=== PATIENT | male | born 1970 ===

== ENCOUNTER 2018-07-10 08:28 | Emergency (ER) | payer BC ==
[2018-07-10] MEDS ORDERED: Sodium Chloride 0.9% 1,000 ML IV ONE (09:46)
--- NOTE | 2018-07-10 09:48 | C.PDOC ---
History Of Present Illness 48 y/o male presents to ED with c/o sharp abdominal pain, nausea and diarrhea for 4 days. Patient states abdominal pain is generalized but worse on lower abdomen and reports 5-6 episodes of non bloody diarrhea daily. Patient states s he had x1 episode of non blood vomiting yesterday and denies recent antibiotic use. Patient admits to decreased po intake secondary to nausea and denies fever, chills, chest pain, sob, dizziness, headache, back pain or any other complaints at this time. Time Seen by Provider: 07/10/18 09:12 Chief Complaint (Nursing): Abdominal Pain History Per: Patient History/Exam Limitations: no limitations Onset/Duration Of Symptoms: Days Current Symptoms Are (Timing): Still Present Location Of Pain/Discomfort: Diffuse Past Medical History Reviewed: Historical Data, Nursing Documentation, Vital Signs Vital Signs: Last Vital Signs Temp 100.2 F H 07/10/18 08:35 Pulse 88 07/10/18 08:35 Resp 17 07/10/18 08:35 BP 128/77 07/10/18 08:35 Pulse Ox 96 07/10/18 08:35 - Medical History PMH: No Chronic Diseases Surgical History: Appendectomy Family History: States: No Known Family Hx - Social History Hx Alcohol Use: No Hx Substance Use: No - Immunization History Hx Tetanus Toxoid Vaccination: No Hx Influenza Vaccination: No Hx Pneumococcal Vaccination: No Review Of Systems Constitutional: Negative for: Fever, Chills Gastrointestinal: Positive for: Nausea, Vomiting, Abdominal Pain, Diarrhea. Negative for: Hematochezia, Hematemesis Genitourinary: Negative for: Dysuria Musculoskeletal: Negative for: Back Pain Skin: Negative for: Rash Physical Exam - Physical Exam Appears: Non-toxic, No Acute Distress Skin: Normal Color, Warm, Dry, No Rash Head: Atraumatic, Normacephalic Eye(s): bilateral: Normal Inspection, PERRL, EOMI Ear(s): Bilateral: Normal Nose: Normal Oral Mucosa: Moist Throat: Normal, No Erythema, No Exudate Neck: Normal ROM, Supple Cardiovascular: Rhythm Regular Respiratory: Normal Breath Sounds, No Rales, No Rhonchi, No Wheezing Gastrointestinal/Abdominal: Bowel Sounds (normoactive), Soft, Tenderness (Generalized worse on LLQ and Suprapubic), No Distention, No Guarding, No Rebound Back: Normal Inspection, No CVA Tenderness, No Vertebral Tenderness, No Paraspinal Tenderness Extremity: Normal ROM, No Pedal Edema, Capillary Refill (<2 seconds) Extremity: Bilateral: Atraumatic, Normal Color And Temperature, Normal ROM, Painful To Bear Weight Pulses: Left Radial: Normal, Right Radial: Normal, Left Dorsalis Pedis: Normal, Right Dorsalis Pedis: Normal Neurological/Psych: Oriented x3, Normal Speech, Normal Cognition, Normal Motor, Normal Sensation Gait: Steady ED Course And Treatment - Laboratory Results Result Diagrams: 07/10/18 09:58 07/10/18 09:58 O2 Sat by Pulse Oximetry: 96 (RA) Pulse Ox Interpretation: Normal - Radiology CXR: Viewed By Me, Read By Radiologist CXR Interpretation: Yes: No Acute Disease - Other Rad CXR X-Ray: Viewed By Me, Read By Radiologist Interpretation: IMPRESSION: Hypoinflation. No focal consolidation identified. - CT Scan/US CT abd/pelvis Other Rad Studies (CT/US): Read By Radiologist, Radiology Report Reviewed CT/US Interpretation: IMPRESSION: Diverticulosis without CT evidence of acute diverticulitis. Evidence of appendectomy. No secondary signs of acute appendicitis. Additional findings as above. Medical Decision Making Medical Decision Making: Plan: * CBC, CMP * Lipase * UA * Urine culture * CXR * CT Abd/Pelvis with IV contrast * Zofran * Pepcid * IVF Labs reveal no leukocytosis. Mild hypokalemia, will give 20mEq KCl. Patient reports decreased pain after medications. CXR: no active disease CT: diverticulosis, no other acute pathology Diagnostic testing results and plan of care discussed with patient, and strict instructions given regarding antibiotic prescriptions, importance of follow up, and signs to return to Emergency Department, to include worsening pain, chest pain, abdominal pain, or any other new/worsening symptoms. Patient verbalizes understanding of discussion. Patient A&Ox3, ambulating with steady gait, stable for discharge home. Disposition - Disposition Referrals: Charly Anderson [Staff Provider] - Disposition: HOME/ ROUTINE Disposition Time: 12:40 Condition: IMPROVED Additional Instructions: Lyle Ciprofloxacin cada 2 horas mila 10 pelaez. Lyle flagyl cada 12 horas mila 10 pelaez, no vi alcohol con joann medicamento Incrementa los lquidos para mantenerte hidratado. Seguimiento con mdico primario en 2 pelaez. Seguimiento con GI dentro de 2 pelaez Regrese a la jose de emergencias para cualquier sntoma nuevo / que empeora Prescriptions: Ciprofloxacin [Cipro] 500 mg PO Q12H #19 tab Metronidazole [Flagyl] 500 mg PO Q8H #29 tablet Instructions: Diarrhea in Adolescents and Adults, Diverticulosis Forms: Work Excuse, Gen Discharge Inst Persian, [employer] (Persian) Print Language: [place] - Clinical Impression Clinical Impression: Diarrhea, Abdominal pain - PA / PEDIATRIC PHYSICIAN / Resident Statement MD/DO has reviewed & agrees with the documentation as recorded. - Scribe Statement The provider has reviewed the documentation as recorded by the Zackery Abdul All medical record entries made by the Travisibangella were at my direction and personally dictated by me. I have reviewed the chart and agree that the record accurately reflects my personal performance of the history, physical exam, medical decision making, and the department course for this patient. I have also personally directed, reviewed, and agree with the discharge instructions and disposition.
[2018-07-10 10:07] LABS: BASO % 0.3 % (0.0-2.0); HEMOGLOBIN 16.2 g/dL (12.0-18.0); LYMPH # 1.1 K/uL (1.0-4.3); LYMPH % 19.4 % (20.0-40.0); MEAN CELL VOLUME 87.8 fL (80.0-94.0); MEAN CORPUSCULAR HEMOGLOBIN 29.4 pg (27.0-31.0); MEAN CORPUSCULAR HGB CONC 33.4 g/dL (33.0-37.0); MEAN PLATELET VOLUME 8.9 fL (7.2-11.7); MONO # 0.7 K/uL (0.0-0.8); MONO % 12.4 % (0.0-10.0); NEUT # 3.9 K/uL (1.8-7.0); NEUT % 67.9 % (50.0-75.0); NRBC % 0.1 % (0.0-2.0); RBC 5.52 Mil/uL (4.40-5.90); RED CELL DISTRIBUTION WIDTH 13.4 % (11.5-14.5); WHITE BLOOD COUNT 5.8 K/uL (4.8-10.8)
[2018-07-10 10:12] LABS: SQUAMOUS EPITHIAL < 1 /hpf (0-5); URINE BILIRUBIN NEGATIVE (NEGATIVE); URINE BLOOD 1+ (NEGATIVE); URINE CLARITY Clear (Clear); URINE COLOR Yellow (YELLOW); URINE GLUCOSE (UA) NORMAL (Normal); URINE LEUKOCYTE ESTERASE NEG Leu/uL (Negative); URINE PROTEIN 1+ mg/dL (NEGATIVE); URINE UROBILINOGEN NORMAL mg/dL (0.2-1.0)
[2018-07-10 10:18] LABS: ALB/GLOB RATIO 1.3 (1.0-2.1); ALBUMIN 4.5 g/dL (3.5-5.0); ALT/SGPT 36 U/L (21-72); AST/SGOT 26 U/L (17-59); BLOOD UREA NITROGEN 14 mg/dL (9-20); CALCIUM 8.9 mg/dl (8.6-10.4); GFR NON-AFRICAN AMERICAN > 60; LIPASE 102 U/L (23-300)
[2018-07-10] MEDS ORDERED: Potassium Chloride 20 mEq ER Tab PO STA (10:26)
[2018-07-10] MEDS ORDERED: Potassium Chloride 20 mEq ER Tab PO ONE (10:54)
[2018-07-10] MEDS ORDERED: Iodixanol 320 MG/ML 100 ML BOTTLE IV ONE (11:00)
--- NOTE | 2018-07-10 11:04 | RAD ---
HISTORY: abdominal pain COMPARISON: No prior. TECHNIQUE: Chest, one view. FINDINGS: Examination limited by habitus and hypoinflation. LUNGS: No focal consolidation. Please note that chest x-ray has limited sensitivity for the detection of pulmonary masses. PLEURA: No significant pleural effusion identified. No definite pneumothorax . CARDIOVASCULAR: Heart size appears within normal limits. No significant atherosclerotic calcification present. OSSEOUS STRUCTURES: No acute osseous abnormality identified. VISUALIZED UPPER ABDOMEN: Unremarkable. OTHER FINDINGS: None. IMPRESSION: Hypoinflation. No focal consolidation identified.
--- NOTE | 2018-07-10 11:42 | CT ---
Date of service: 07/10/2018 PROCEDURE: CT Abdomen and Pelvis with contrast HISTORY: abd pain COMPARISON: None available. TECHNIQUE: Contrast dose: 100 mL Visipaque 320 Radiation dose: Total exam DLP = 677.87 mGy-cm. This CT exam was performed using one or more of the following dose reduction techniques: Automated exposure control, adjustment of the mA and/or kV according to patient size, and/or use of iterative reconstruction technique. FINDINGS: LOWER THORAX: No visible consolidation, pleural effusion, or pneumothorax. LIVER: Unremarkable. GALLBLADDER AND BILE DUCTS: Unremarkable. PANCREAS: Unremarkable. SPLEEN: Unremarkable. ADRENALS: Unremarkable. KIDNEYS AND URETERS: The kidneys enhance symmetrically. No hydronephrosis or obstructing calculus identified. VASCULATURE: No aortic aneurysm. No atherosclerotic calcification or mural plaque present. BOWEL: Stomach is nondistended. Lack of oral contrast limits evaluation for bowel pathology. Bowel loops appear within normal limits of caliber without evidence of obstruction. Diverticulosis without CT evidence of acute diverticulitis. APPENDIX: Surgical clips near the cecum consistent with appendectomy. No secondary signs of acute appendicitis. PERITONEUM: No significant free fluid. No definite free air. LYMPH NODES: No bulky adenopathy identified. BLADDER: Unremarkable. REPRODUCTIVE: Prostate gland measures approximately 3.6 x 4.3 cm. BONES: Mild degenerative changes of the spine. OTHER FINDINGS: Tiny fat containing umbilical hernia. IMPRESSION: Diverticulosis without CT evidence of acute diverticulitis. Evidence of appendectomy. No secondary signs of acute appendicitis. Additional findings as above.
[2018-07-10 11:47] VITALS: BP 126/71; PULSE 53; RESP 16; TEMP 99.7
[2018-07-10 12:05] VITALS: O2SAT 96
== END 2018-07-10 12:51 | disposition home or self-care (01) ==
LOC: C.ER 08:28
DX: R10.32 Left lower quadrant pain (principal); R19.7 Diarrhea, unspecified; E87.6 Hypokalemia
CPT/HCPCS: 71045; 74177; 80053; 81001; 83690; 85025; 87086; 96361; 96374; 99284; J7030; Q9967